=== PATIENT | female | born 1995 | race Caucasian/White ===

== ENCOUNTER 2024-04-13 00:45 | Emergency (ER) | payer SELFPAY ==
[~2024-04-13] VITALS: Ht 167.6 cm; Wt 70.3 kg
[2024-04-13 01:09] VITALS: BP 121/74; TEMP 98.1; O2SAT 98
[2024-04-13] MEDS ORDERED: KETO10TA2 PO (02:48)
[2024-04-13] MEDS ORDERED: HYDROCODONE/APAP 10/325MG TABLET ONE (02:53)
[2024-04-13] MEDS: HYDROCODONE/APAP 10/325MG TABLET PO ONE (02:54)
== END 2024-04-13 03:23 | disposition home or self-care (01) ==
LOC: ER 00:47
DX: S83.8X2A Sprain of other specified parts of left knee, initial encounter (principal); X58.XXXA Exposure to other specified factors, initial encounter; Y93.41 Activity, dancing; Y92.89 Other specified places as the place of occurrence of the external cause; Y99.8 Other external cause status
CPT/HCPCS: 73564-TC